=== PATIENT | female | born 1930 | race Caucasian/White ===

== ENCOUNTER 2017-11-07 23:27 | Emergency (ER) | payer MEDICARE, OTHER ==
[~2017-11-07 23:27] MED LIST: ATROPINE 1 MG/10 ML SYRINGE; EPINEPHrine 0.1 MG/ML SYG
[2017-11-07] MEDS ORDERED: PHENYLephrine 20MG IN 250 ML 250 ML (23:56)
[2017-11-08] MEDS: SOD CHLORIDE 0.9% IV (00:06)
[2017-11-08] MEDS: PHENYLephrine 20MG IN 250 ML 250 ML IV ×2 (00:11→01:20)
[2017-11-08] MEDS ORDERED: DOPamine-D5W 1.6 MG/ML 250 ML (00:46)
[2017-11-08] MEDS: NORepinephrine 8MG/250 ML (PMX 250 ML IV (01:07)
[2017-11-08 01:13] LABS: ABNORMAL IP MESSAGE 1; HEMATOCRIT 24.5 % (37.0-47.0); HEMOGLOBIN 7.9 g/dl (12.0-16.0); MEAN CORPUSCULAR HEMOGLOBIN 27.3 pg (29.0-33.0); MEAN CORPUSCULAR HGB CONC 32.2 g/dl (32.0-37.0); MEAN CORPUSCULAR VOLUME 84.8 fl (82.0-101.0); MEAN PLATELET VOLUME 9.9 fl (7.4-10.4); NUCLEATED RED BLOOD CELLS% 2.9 /100WBC (0.0-0.0); PLATELET COUNT 324 10^3/UL (140-415); RED BLOOD COUNT 2.89 10^6/ul (4.20-5.40); RED CELL DISTRIBUTION WIDTH 13.7 % (11.5-14.5)
[2017-11-08 01:13] LABS: WHITE BLOOD COUNT 12.3 10^3/ul (4.8-10.8)
[2017-11-08 01:24] LABS: INR 1.25; PROTIME 15.9 Sec (11.9-14.9); PT RATIO 1.2
[2017-11-08 01:25] LABS: PARTIAL THROMBOPLASTIN TIME 33.7 Sec (25.0-35.0)
[2017-11-08 01:27] LABS: POSITIVE DIFF @See below
[2017-11-08 01:28] LABS: ADD MAN DIFF? YES
[2017-11-08 01:32] LABS: ALANINE AMINOTRANSFERASE 32 IU/L (13-69); ALBUMIN 2.1 g/dl (3.3-4.9); ALKALINE PHOSPHATASE 79 IU/L (42-121); ANION GAP 19 (8-16); ASPARTATE AMINO TRANSFERASE 37 IU/L (15-46); BLOOD UREA NITROGEN 83 mg/dl (7-20); CALCIUM 7.3 mg/dl (8.4-10.2); CARBON DIOXIDE 16 mmol/L (21-31); CHLORIDE 99 mmol/L (97-110); GLUCOSE 110 mg/dl (70-220); SODIUM 127 mmol/L (135-144); TOTAL PROTEIN 4.7 g/dl (6.1-8.1)
[2017-11-08] MEDS ORDERED: MEROPENEM 500MG/50 ML (PMX) 50 ML IVPB ×2 (01:36→09:00)
[2017-11-08 01:39] LABS: POTASSIUM 7.2 mmol/L (3.5-5.1)
[2017-11-08 01:40] LABS: CREATININE 2.95 mg/dl (0.44-1.00)
[2017-11-08 01:51] LABS: AADO2 Arterial 528.4 mmHg (7.0-24.0); Allen Test ACCEPTAB; Arterial Base Excess -18.5 mmol/L (-3.0-3); Arterial Blood Gas Oxygen Sat 97.1 mmHG (95.0-100.0); Arterial COHb 0.3 % (0.0-3.0); Arterial Fraction of Oxyhgb 96.4 % (93.0-99.0); Arterial HCO3 11.6 mmol/L (22.0-26.0); Arterial MetHb 0.4 % (0.0-1.5); Arterial Total Hemglobin 9.2 g/dl (12.0-18.0); Arterial pCO2 46.2 mmhg (35-45); MODE MASK - NRB; Site Right Radial
[2017-11-08] MEDS ORDERED: INSULIN REGULAR, HUMAN 100 UNIT/1 ML 3ML VIAL IVP (01:58)
[2017-11-08] MEDS ORDERED: CALCIUM GLUCONATE 10% 2 GM in DEXTROSE 5% 100 ML IVPB (02:00)
[2017-11-08] MEDS ORDERED: VANCOMYCIN 1 GM (PMX) 250 ML IVPB (02:00)
[2017-11-08] MEDS ORDERED: DOPamine-D5W 1.6 MG/ML 250 ML IV (02:00)
[2017-11-08] MEDS ORDERED: DEXTROSE 50% 50 ML SYRINGE IV (02:00)
[2017-11-08] MEDS ORDERED: SOD CHLORIDE 0.9% 1,000 ML IV (02:09)
[2017-11-08] MEDS: ALBUTEROL 0.5% (NEB) 2.5 MG/0.5 ML AMP INH (02:24)
[2017-11-08] MEDS ORDERED: VANCOMYCIN IV PER PHARMACY XX (02:30)
[2017-11-08] MEDS ORDERED: ONDANSETRON 4 MG INJ IV (02:30)
[2017-11-08] MEDS ORDERED: NA POLYST SULFON 15 GM/60 ML BTL PR (02:30)
[2017-11-08] MEDS ORDERED: ACETAMINOPHEN 650 MG SUPP PR (02:30)
[2017-11-08] MEDS ORDERED: ALBUTEROL/IPRATROPIUM (NEB) 3 ML AMP NEB (02:30)
[2017-11-08] MEDS: MORPHINE IV (02:53)
[2017-11-08] MEDS: D5W IV (02:53)
[2017-11-08] MEDS: LORAZEPAM 2 MG INJ IV (03:34)
[2017-11-08 05:12] LABS: ANISOCYTOSIS 1+ (0-0); BAND NEUTROPHILS #M 0.4 10^3/ul (0.0-0.6); BAND NEUTROPHILS % (M) 4 % (0-4); ERYTHROBLAST% (NRBC) (M) 2 % (0-0); GIANT THROMBO% (M) 3 % (0-0); LYMPHOCYTES #M 1.3 10^3/ul (0.8-2.9); LYMPHOCYTES % (M) 11 % (15-51); METAMYELOCYTES #M 0.3 10^3/ul (0.0-0.0); METAMYELOCYTES %M 3 % (0-0); MONOCYTE #M 1.8 10^3/ul (0.3-0.9); MONOCYTES % (M) 15 % (0-11); MYELOCYTES #M 0.2 10^3/ul (0.0-0.0); MYELOCYTES % (M) 2 % (0-0); PLATELET ESTIMATE NORMAL; POIKILOCYTOSIS 3+ (0-0); POLYCHROMASIA 1+ (0-0); REACTIVE LYMPHOCYTES #M 0.2 10^3/ul (0.0-0.0); REACTIVE LYMPHOCYTES% (M) 2 % (0-0); SEG NEUT #M 7.8 10^3/ul (1.6-7.5); SEGMENTED NEUTROPHILS (M) % 63 % (39-77); SMUDGE%M 2 % (0-0)
[2017-11-08] MEDS ORDERED: PANTOPRAZOLE 40 MG INJ IV (06:00)
== END 2017-11-08 09:22 | disposition expired ==
LOC: E/R 23:27
DX: J96.00 Acute respiratory failure, unspecified whether with hypoxia or hypercapnia (principal); R65.21 Severe sepsis with septic shock; A41.9 Sepsis, unspecified organism; J18.9 Pneumonia, unspecified organism; E87.5 Hyperkalemia; N17.9 Acute kidney failure, unspecified; D64.9 Anemia, unspecified; I10 Essential (primary) hypertension; Z85.028 Personal history of other malignant neoplasm of stomach
CPT/HCPCS: 36600; 71045; 80053; 82803; 82962; 84484; 85025; 85610; 85730; 87040; 93005; 94664; 96374; 96375; 99291-25